=== PATIENT | male | born 1990 | race Two or more races ===

== ENCOUNTER 2024-02-09 23:07 | Emergency (ER) | payer MEDICAID ==
[~2024-02-09] VITALS: Ht 167.6 cm; Wt 127.9 kg
[~2024-02-09 23:07] MED LIST: AMOX500T86 PO; CLIN1CAP70 PO; HYDR-4833 PO; INSLANTI SC; INSREG3 IV
[2024-02-09 23:20] VITALS: BP 152/77; PULSE 98; RESP 16; TEMP 98.6; O2SAT 96
[2024-02-10] MEDS ORDERED: CYCL-837 PO (02:40)
[2024-02-10] MEDS ORDERED: IBUP-1456 PO (02:40)
== END 2024-02-10 02:50 | disposition home or self-care (01) ==
LOC: ER 23:07
DX: S46.811A Strain of other muscles, fascia and tendons at shoulder and upper arm level, right arm, initial encounter (principal); E11.9 Type 2 diabetes mellitus without complications; Z98.890 Other specified postprocedural states; Z79.899 Other long term (current) drug therapy; X50.0XXA Overexertion from strenuous movement or load, initial encounter; Y93.89 Activity, other specified; Y92.89 Other specified places as the place of occurrence of the external cause; Y99.8 Other external cause status
CPT/HCPCS: 73030